=== PATIENT | male | born 1995 | race Caucasian/White ===

== ENCOUNTER 2017-05-19 13:20 | Emergency (ER) | payer SELFPAY ==
[~2017-05-19 13:20] MED LIST: NO MEDICATIONS; PERCOCET5/325 PO; ROBAXIN500 MG PO; ZITHROMAX PO
== END 2017-05-19 15:18 | disposition home or self-care (01) ==
LOC: SED 13:20
DX: K29.70 Gastritis, unspecified, without bleeding (principal); Z91.018 Allergy to other foods
CPT/HCPCS: 99283

== ENCOUNTER 2017-07-10 20:27 | Emergency (ER) | payer OTHER ==
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
== END 2017-07-10 22:10 | disposition home or self-care (01) ==
LOC: SED 20:27
DX: S60.221A Contusion of right hand, initial encounter (principal); F17.210 Nicotine dependence, cigarettes, uncomplicated; W23.0XXA Caught, crushed, jammed, or pinched between moving objects, initial encounter; Y92.009 Unspecified place in unspecified non-institutional (private) residence as the place of occurrence of the external cause
CPT/HCPCS: 73130; 99283

== ENCOUNTER 2017-07-17 04:48 | Emergency (ER) | payer OTHER ==
[~2017-07-17] VITALS: Ht 175.3 cm; Wt 83.9 kg
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
== END 2017-07-17 06:23 | disposition home or self-care (01) ==
LOC: CED 04:48
DX: S01.112A Laceration without foreign body of left eyelid and periocular area, initial encounter (principal); S50.311A Abrasion of right elbow, initial encounter; F17.200 Nicotine dependence, unspecified, uncomplicated; Y04.0XXA Assault by unarmed brawl or fight, initial encounter; Y92.89 Other specified places as the place of occurrence of the external cause
CPT/HCPCS: 12013; 70450; 70486; 73080; 73130; 99284

== ENCOUNTER 2017-07-24 12:21 | Emergency (ER) | payer OTHER ==
[~2017-07-24] VITALS: Ht 177.8 cm; Wt 81.6 kg
== END 2017-07-24 13:42 | disposition home or self-care (01) ==
LOC: CFTX 12:21 → CED 12:21 → CFTX 13:39
DX: S01.81XD Laceration without foreign body of other part of head, subsequent encounter (principal); F17.210 Nicotine dependence, cigarettes, uncomplicated
CPT/HCPCS: 99281